=== PATIENT | female | born 1965 | race Two or more races ===

== ENCOUNTER 2020-09-03 08:07 | Outpatient (CLI) | payer BC | END 2020-09-03 23:59 | disposition home or self-care (01) | LOC: MRI 08:07 | PROVIDERS: ATTEND Family Medicine | DX: S83.512A Sprain of anterior cruciate ligament of left knee, initial encounter (principal); M94.262 Chondromalacia, left knee; M25.572 Pain in left ankle and joints of left foot; M25.552 Pain in left hip; X58.XXXA Exposure to other specified factors, initial encounter; Y93.89 Activity, other specified; Y92.89 Other specified places as the place of occurrence of the external cause; Y99.8 Other external cause status | CPT/HCPCS: 73721-TC ==

== ENCOUNTER 2021-07-18 11:50 | Outpatient (CLI) | payer BC | END 2021-07-18 23:59 | disposition home or self-care (01) | LOC: MRI 11:50 | PROVIDERS: ATTEND Family Medicine | DX: M16.12 Unilateral primary osteoarthritis, left hip (principal); M76.02 Gluteal tendinitis, left hip; M70.62 Trochanteric bursitis, left hip; M17.12 Unilateral primary osteoarthritis, left knee; M22.42 Chondromalacia patellae, left knee; Y93.89 Activity, other specified | CPT/HCPCS: 73721-TC ==